=== PATIENT | male | born 1960 | race American Indian/Alaskan Native ===

== ENCOUNTER 2020-12-23 16:09 | Emergency (ER) | payer SELFPAY ==
[2020-12-23 16:41] VITALS: BP 149/102
--- NOTE | 2020-12-23 18:41 | Event Note ---
ED Screening Note Date of service: 12/23/20 Time: 18:34 ED Screening Note: 60-year-old -[place] male presents to the emergency room for left-sided rib pain that started on . Patient reported after lifting lumber. Patient reports he is taking Tylenol. He denies any allergy to Tylenol. This initial assessment/diagnostic orders/clinical plan/treatment(s) is/are subject to change based on patients health status, clinical progression and re- assessment by fellow clinical providers in the ED. Further treatment and workup at subsequent clinical providers discretion. Patient/guardian urged not to elope from the ED as their condition may be serious if not clinically assessed and managed. Initial orders include:
--- NOTE | 2020-12-23 19:15 | XRay Report ---
LEFT RIBS 4 VIEWS WITH CHEST X-RAY INDICATION / CLINICAL INFORMATION: Left rib pain. COMPARISON: None available. FINDINGS: No significant skeletal abnormality. No evidence of a left-sided pneumothorax Signer Name: Jitendra Rojo MD FACR Signed: 12/23/2020 7:11 PM Workstation Name: [id number]
[2020-12-23] MEDS ORDERED: predniSONE 20 MG TAB PO ONE (19:29)
[2020-12-23] MEDS ORDERED: KETOROLAC 60 MG/2 ML INJ IM ONE (19:29)
--- NOTE | 2020-12-23 19:44 | Emergency Department Report ---
ED General Adult HPI - General Chief complaint: Chest Pain Stated complaint: LT SIDE PAIN Time Seen by Provider: 12/23/20 19:21 Source: patient Mode of arrival: Wheelchair Limitations: No Limitations - History of Present Illness Initial comments: This is a 60-year-old male nontoxic, well nourished in appearance, no acute signs of distress presents to the ED with c/o of left lateral rib pain x1 day. Patient stated that he was heavy lifting and developed sharp pain right away. Patient denies any radiation of pain. Patient denies any trauma. Denies any bladder or bowel instability. Patient denies any urinary symptoms. Denies any fever, chills, nausea, vomiting, headache, stiff neck, chest pain or shortness of breath. Patient denies any numbness or tingling. Patient denies any significant past medical history. -: days(s) Location: chest (Left lateral rib) Radiation: non-radiation Severity scale (0 -10): 8 Quality: aching, dull Consistency: intermittent Improves with: immobilization, rest Worsens with: movement Associated Symptoms: denies other symptoms. denies: confusion, chest pain, cough, diaphoresis, fever/chills, headaches, loss of appetite, malaise, nausea/vomiting, rash, seizure, shortness of breath, syncope, weakness Treatments Prior to Arrival: none - Related Data Previous Rx's Medication Instructions Recorded Last Taken Type Oseltamivir [Tamiflu] 75 mg PO BID 5 Days #10 cap 10/01/19 Unknown Rx Cyclobenzaprine [Flexeril] 10 mg PO QHS PRN #10 tablet 12/23/20 Unknown Rx Allergies Allergy/AdvReac Type Severity Reaction Status Date / Time acetaminophen [From Percocet] Allergy Rash Verified 12/23/20 16:38 oxycodone [From Percocet] Allergy Rash Verified 12/23/20 16:38 Penicillins Allergy Anaphylaxis Verified 10/01/19 19:43 ibuprofen [From Motrin] AdvReac Headache Verified 12/23/20 16:38 ED Review of Systems ROS: Stated complaint: LT SIDE PAIN Other details as noted in HPI Comment: All other systems reviewed and negative Constitutional: denies: chills, fever Eyes: denies: eye pain, eye discharge, vision change ENT: denies: ear pain, throat pain Respiratory: denies: cough, shortness of breath, wheezing Cardiovascular: denies: chest pain, palpitations Endocrine: no symptoms reported Gastrointestinal: denies: abdominal pain, nausea, diarrhea Genitourinary: denies: urgency, dysuria Musculoskeletal: denies: back pain, joint swelling, arthralgia Skin: denies: rash, lesions Neurological: denies: headache, weakness, paresthesias Psychiatric: denies: anxiety, depression Hematological/Lymphatic: denies: easy bleeding, easy bruising ED Past Medical Hx - Past Medical History Hx Hypertension: Yes Additional medical history: ABNORMAL MYOCARDIAL PERFUSION STUDY . 10% REVERSAL INFEROLATERAL DEFECT, NORMAL WALL MOTION, LEFT VETRICULAR ef <55%, ERECTILE DYSFUNCTION, BENIGN ESSENTIAL HYPERTENSION, CORONARY ARTEREOSCLEROSIS, HYPERLIPIDEMIA, DIVERTICULOSIS, HERPES SIMPLEX TYPE 2 - Surgical History Hx Coronary Stent: Yes - Social History Smoking Status: Never Smoker Substance Use Type: None - Medications Home Medications: Home Medications Medication Instructions Recorded Confirmed Last Taken Type Oseltamivir [Tamiflu] 75 mg PO BID 5 Days #10 cap 10/01/19 Unknown Rx Cyclobenzaprine [Flexeril] 10 mg PO QHS PRN #10 tablet 12/23/20 Unknown Rx ED Physical Exam - General Limitations: No Limitations General appearance: alert, in no apparent distress - Head Head exam: Present: atraumatic, normocephalic - Eye Eye exam: Present: normal appearance - Neck Neck exam: Present: normal inspection, full ROM - Respiratory Respiratory exam: Present: normal lung sounds bilaterally, chest wall tenderness (Left lateral rib). Absent: respiratory distress, wheezes, rales, rhonchi, stridor, accessory muscle use, decreased breath sounds, prolonged expiratory - Cardiovascular Cardiovascular Exam: Present: regular rate, normal rhythm, normal heart sounds. Absent: bradycardia, tachycardia, irregular rhythm, systolic murmur, diastolic murmur, rubs, gallop - GI/Abdominal GI/Abdominal exam: Present: soft, normal bowel sounds. Absent: distended, tenderness, guarding, rebound, rigid, diminished bowel sounds - Extremities Exam Extremities exam: Present: normal inspection, full ROM - Back Exam Back exam: Present: normal inspection, full ROM. Absent: tenderness, CVA tenderness (R), CVA tenderness (L), muscle spasm, paraspinal tenderness, vertebral tenderness, rash noted - Neurological Exam Neurological exam: Present: alert, oriented X3, normal gait - Psychiatric Psychiatric exam: Present: normal affect, normal mood - Skin Skin exam: Present: warm, dry, intact, normal color. Absent: rash ED Course Vital Signs 12/23/20 16:39 Temperature 98.3 F Pulse Rate 89 Respiratory 22 Rate Blood Pressure 149/102 O2 Sat by Pulse 98 Oximetry - Reevaluation(s) Reevaluation #1: 12/23/20 19:43 Patient is speaking in full sentences with no signs of distress noted. ED Medical Decision Making - Radiology Data [facility] [address] [place] [address] XRay Report Signed Patient: CARMENZA HOPPER MR#: [id number] : 1960 Acct:[id number] Age/Sex: 60 / M ADM Date: 12/23/20 Loc: ED Attending Dr: Ordering Physician: ANTONIO MEJIA Date of Service: 12/23/20 Procedure(s): XR ribs UNI w PA chest 3+V LT Accession Number(s): [id number] cc: ANTONIO MEJIA Fluoro Time In Minutes: LEFT RIBS 4 VIEWS WITH CHEST X-RAY INDICATION / CLINICAL INFORMATION: Left rib pain. COMPARISON: None available. FINDINGS: No significant skeletal abnormality. No evidence of a left-sided pneumothorax Signer Name: Jitendra Rojo MD FACR Signed: 12/23/2020 7:11 PM Workstation Name: [id number] Transcribed By: MS Dictated By: Jitendra Rojo MD Electronically Authenticated By: Jitendra Rojo MD Signed Date/Time: 12/23/201910 DD/ 08 TD/TT: - Medical Decision Making This is a 60-year-old male that presents with muscle strain. Patient is stable was examined by me. There is no spinal tenderness. There is no cauda equina syndrome during examination. No bladder or bowel instability. Patient received Toradol 60 mg IM and prednisone in the ED which stated that his symptoms has resolved and subsided. Patient is discharged with muscle relaxant. Patient was instructed not to operate any machinery while taking muscle relaxant as they cause her drowsiness. Patient was referred to Follow-up with a primary care doctor in 3-5 days or if symptoms worsen and continue return to emergency room as soon as possible. At time of discharge, the patient does not seem toxic or ill in appearance. No acute signs of distress noted. Patient agrees to discharge treatment plan of care. No further questions noted by the patient. This chart is dictated with using [employer] Critical care attestation.: If time is entered above; I have spent that time in minutes in the direct care of this critically ill patient, excluding procedure time. ED Disposition Clinical Impression: Muscle strain of chest wall Qualifiers: Encounter type: initial encounter Qualified Code(s): S29.011A - Strain of muscle and tendon of front wall of thorax, initial encounter Disposition: TO HOME OR SELFCARE Is pt being admited?: No Does the pt Need Aspirin: No Condition: Stable Instructions: Muscle Strain, [id number] Additional Instructions: Follow-up with a primary care doctor in 3-5 days or if symptoms worsen and continue return to emergency room as soon as possible. Take Flexeril as prescribed. Do not operate heavy machinery while taking Flexeril due to sedation Prescriptions: Cyclobenzaprine [Flexeril] 10 mg PO QHS PRN #10 tablet PRN Reason: Muscle Spasm Referrals: PRIMARY CAREMD [Primary Care Provider] - 3-5 Days SUE CORTEZ MD [Staff Physician] - 3-5 Days Forms: Work/School Release Form(ED) Time of Disposition: 20:28
== END 2020-12-23 20:35 | disposition home or self-care (01) ==
LOC: ED 16:09
DX: S29.011A Strain of muscle and tendon of front wall of thorax, initial encounter (principal); I10 Essential (primary) hypertension; Z88.0 Allergy status to penicillin; Z88.8 Allergy status to other drugs, medicaments and biological substances; Z88.6 Allergy status to analgesic agent; Z79.899 Other long term (current) drug therapy; X50.0XXA Overexertion from strenuous movement or load, initial encounter; Y93.89 Activity, other specified; Y92.89 Other specified places as the place of occurrence of the external cause; Y99.8 Other external cause status
CPT/HCPCS: 71101; 96372; 99283; J1885; J7512